=== PATIENT | male | born 1965 | race American Indian/Alaskan Native ===

== ENCOUNTER 2019-06-18 13:22 | Emergency (ER) | payer SELFPAY ==
[2019-06-18 14:12] VITALS: BP 153/74
--- NOTE | 2019-06-18 14:19 | Emergency Department Report ---
Chief Complaint: Upper Respiratory Infection Stated Complaint: CHEST PAIN/FLU SYM/COUGH Time Seen by Provider: 06/18/19 14:09 - HPI History of Present Illness: This is a 53 y.o. M. that presents to the ER with cough, congestion, and chest discomfort with cough for 2 weeks. He is taking alk-selzer plus and theraflu with minimal improvement of symptoms. Patient states cough is not improving with current medication. Denies fever, chills, chest pain, coryza, myalgia, sore throat, SOB, palpitations, nausea, vomiting, or diarrhea. - ROS Review of Systems: Review of Systems: Stated complaint: cough and congestion Other details as noted in HPI Constitutional: denies: chills, fever ENT: congestion. denies: ear pain, throat pain Respiratory: cough. denies: shortness of breath, SOB with exertion, wheezing Cardiovascular: denies: palpitations, chest pain Gastrointestinal: denies: abdominal pain, nausea, diarrhea Musculoskeletal: denies: back pain, joint swelling, arthralgia Skin: denies: rash, lesions Neurological: denies: headache, weakness, paresthesias Psychiatric: denies: anxiety, depression - Exam Vital Signs: Vital Signs 06/18/19 14:10 Temperature 98.3 F Pulse Rate 83 Respiratory 20 Rate Blood Pressure 153/74 O2 Sat by Pulse 96 Oximetry Physical Exam: Physical Exam: General: Vital signs noted. No distress. Alert and acting appropriately. HEENT: Yes Moist Mucous Membranes, Yes Rhinorrhea (turbinates mildly congested with clear discharge), No Pharyngeal Erythema, No Pharyngeal Exudates, No Conjuctival Injection, No Frontal Tenderness, No Maxillary Tenderness Ear: Neither TM Bulge, Neither TM Erythema, Neither EAC Pain, Neither EAC Discharge, Neither Cerumen Impaction Neck: Yes Supple, No Adenopathy Lungs: Yes Good Air Exchange, No Wheezes, No Ronchi, No Stridor, No Cough, No Labored Respirations, No Retractions, No Use of Accessory Muscles, No Other Abnormal Lung Sounds Heart: Yes Regular, No Murmur Abdomen: Yes Normal Bowel Sounds, No Tenderness, No Peritoneal Signs Skin: No Rash, No Eczema Neurologic: Alert and oriented, no deficits. Extremities: Without edema, cyanosis, or clubbing. MSE screening note: Focused history and physical exam performed. Due to findings the following was ordered: ED Medical Decision Making - Medical Decision Making 53-year-old male that presents with URI symptoms. Patient is stable and was examined by me. Normal vital signs. This is a non-emergent complaint. Patient was instructed to Follow-up with a primary care doctor in 3-5 days or if symptoms worsen and continue return to emergency room as soon as possible. Continue taking OTC symptomatic relief medication. At time of discharge, the patient does not seem toxic or ill in appearance. No acute signs of distress noted. Patient agrees to discharge treatment plan of care. No further questions noted by the patient. ED Disposition for MSE Clinical Impression: Feared complaint without diagnosis Disposition: DC-01 TO HOME OR SELFCARE Is pt being admited?: No Condition: Stable Instructions: Upper Respiratory Infection (ED) Additional Instructions: Increase fluid intake. Wash hands frequently. Continue taking [id number] cold and flu medication for symptomatic relief. Follow up with a primary care doctor for the list provided. Referrals: [facility] [Outside] - 3-5 Days [facility] [Outside] - 3-5 Days [facility] [Outside] - 3-5 Days Forms: Work/School Release Form(ED) Time of Disposition: 14:45
== END 2019-06-18 15:10 | disposition home or self-care (01) ==
LOC: EDBD → ED 13:22
DX: R05 Cough (principal); R07.89 Other chest pain; R09.81 Nasal congestion; Z71.1 Person with feared health complaint in whom no diagnosis is made